=== PATIENT | male | born 1950 | race Caucasian/White ===

== ENCOUNTER 2018-06-12 10:04 | Inpatient (IN) | payer MEDICARE, MEDICAID ==
[2018-06-12] MEDS ORDERED: Lactated Ringer 1,000 ML IV ONE ×2 (10:27→19:23)
[2018-06-12] MEDS ORDERED: Multivitamin Inj 10 ML, Thiamine HCL 100 MG, Magnesium Sulfate 2 GM, Folic Acid 1 MG in... IV SCH ×2 (10:30→22:00)
[2018-06-12 10:43] LABS: % BASOPHILS 0.6 % (0.0-2.0); % EOSINOPHILS 1.6 % (0.0-5.0); % LYMPHOCYTES 9.6 % (20.0-50.0); % MONOCYTES 5.6 % (2.0-10.0); % NEUTROPHILS 82.6 % (40.0-80.0); BASOPHILE ABSOLUTE 0.1 Th/cumm (0-0.2); EOSINOPHILE ABSOLUTE 0.2 Th/cmm (0.1-0.4); HEMATOCRIT 43.7 % (41.0-60); HEMOGLOBIN 14.6 gm/dL (12-16); LYMPHOCYTE ABSOLUTE 1.1 Th/cmm (1.5-3.0); MEAN CELL VOLUME 85.6 fl (80-99); MEAN CORPUSCULAR HEMOGLOBIN 28.6 pg (27.0-31.0); MEAN CORPUSCULAR HGB CONC 33.4 pg (28.0-36.0); MEAN PLATELET VOLUME 8.2 fl; MONOCYTE ABSOLUTE 0.6 Th/cmm (0.3-1.0); PLATELET COUNT 139 Th/cmm (150-400); RED BLOOD COUNT 5.11 Mil/cmm (3.80-5.80); RED CELL DISTRIBUTION WIDTH 14.9 % (11.5-20.0)
[2018-06-12 11:00] LABS: ALB/GLOB RATIO 1.7 (1.0-1.8); ALBUMIN 4.4 gm/dL (4.2-5.5); ALKALINE PHOSPHATASE 55 U/L (34-104); AMYLASE SERUM 147 U/L (29-103); ANION GAP 20.3 (7.0-16.0); BILIRUBIN,TOTAL 0.8 mg/dL (0.3-1.0); BUN - UREA NITROGEN 28 mg/dL (7-25); CALCIUM SERUM 8.1 mg/dL (8.6-10.3); CARBON DIOXIDE 23.3 mEq/L (21.0-31.0); CHLORIDE 104 mEq/L (98-107); CREATININE - SERUM 1.1 mg/dL (0.7-1.3); GFR AFRICAN-AMERICAN > 60.0 ml/min (>90); GFR NON AFRICAN-AMERICAN > 60.0 ml/min; GLUCOSE 106 mg/dL (70-105); LIPASE 265 U/L (11-82); PHOSPHOROUS 4.2 mg/dL (2.5-5.0); POTASSIUM SERUM 3.6 mEq/L (3.5-5.1); SGOT 30 U/L (13-39); SGPT/ALT 28 U/L (7-52); SODIUM SERUM 144 mEq/L (136-145)
[2018-06-12] MEDS ORDERED: Multivitamin Inj 10 mL Vial IV ONE ×2 (11:15→22:07)
[2018-06-12] MEDS ORDERED: Magnesium Sulfate 1 gm/2 mL 2mL Vial IV ONE ×2 (11:15→22:17)
[2018-06-12] MEDS ORDERED: Thiamine 100 mg/mL 2mL Vial ONE ×2 (11:15→22:07)
[2018-06-12 11:34] LABS: URINE SOURCE CATH
[2018-06-12 11:38] LABS: URINE BILIRUBIN NEGATIVE (NEGATIVE); URINE BLOOD NEGATIVE (NEGATIVE); URINE GLUCOSE (UA) NEGATIVE (NEGATIVE); URINE KETONE TRACE mg/dL (NEGATIVE); URINE LEUKOCYTE ESTERASE NEGATIVE (NEGATIVE); URINE NITRATE NEGATIVE (NEGATIVE); URINE PROTEIN NEGATIVE (NEGATIVE); URINE UROBILINOGEN 0.2 E.U./dL (0.2 - 1.0)
[2018-06-12 11:51] LABS: URINE CLARITY CLEAR (CLEAR); URINE COLOR YELLOW
[2018-06-12 11:52] LABS: URINE MICROSCOPIC INDICATED? NO
[2018-06-12 12:09] LABS: AMPHETAMINE URINE NEGATIVE (NEGATIVE); BARBITURATES URINE NEGATIVE (NEGATIVE); BENZODIAZEPINES QUAL URINE POSITIVE (NEGATIVE); CANNABINOID THC NEGATIVE (NEGATIVE); COCAINE METABOLITE QUAL URINE NEGATIVE (NEGATIVE); METHADONE URINE NEGATIVE (NEGATIVE); METHAMPHETAMINES QUAL URINE NEGATIVE (NEGATIVE); OPIATES (MORPHINE) QUAL. URINE POSITIVE (NEGATIVE); PHENCYCLIDINE (PCP) URINE NEGATIVE (NEGATIVE); TRICYCLICS (TCA) QUAL. URINE POSITIVE (NEGATIVE)
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
[2018-06-13 04:49] LABS: % BASOPHILS 0.4 % (0.0-2.0); % EOSINOPHILS 1.1 % (0.0-5.0); % LYMPHOCYTES 12.5 % (20.0-50.0); % MONOCYTES 4.8 % (2.0-10.0); % NEUTROPHILS 81.2 % (40.0-80.0); EOSINOPHILE ABSOLUTE 0.1 Th/cmm (0.1-0.4); HEMATOCRIT 43.2 % (41.0-60); HEMOGLOBIN 14.3 gm/dL (12-16); MEAN CELL VOLUME 86.2 fl (80-99); MEAN CORPUSCULAR HEMOGLOBIN 28.5 pg (27.0-31.0); MEAN CORPUSCULAR HGB CONC 33.1 pg (28.0-36.0); MONOCYTE ABSOLUTE 0.4 Th/cmm (0.3-1.0); NEUTROPHILE ABSOLUTE 6.6 Th/cmm (1.8-8.0); PLATELET COUNT 118 Th/cmm (150-400); RED BLOOD COUNT 5.01 Mil/cmm (3.80-5.80); RED CELL DISTRIBUTION WIDTH 14.5 % (11.5-20.0); WHITE BLOOD COUNT 8.1 Th/cmm (4.8-10.8)
[2018-06-13 05:16] LABS: ANION GAP 19.4 (7.0-16.0); BUN - UREA NITROGEN 16 mg/dL (7-25); CALCIUM SERUM 7.9 mg/dL (8.6-10.3); CARBON DIOXIDE 20.1 mEq/L (21.0-31.0); CHLORIDE 106 mEq/L (98-107); CREATININE - SERUM 0.8 mg/dL (0.7-1.3); GFR AFRICAN-AMERICAN > 60.0 ml/min (>90); GFR NON AFRICAN-AMERICAN > 60.0 ml/min; GLUCOSE 110 mg/dL (70-105); POTASSIUM SERUM 3.5 mEq/L (3.5-5.1); SODIUM SERUM 142 mEq/L (136-145)
--- NOTE | 2018-06-13 08:33 | Diagnostic Imaging Report ---
Portable chest x-ray HISTORY: Shortness of breath The heart size is normal. There is a tortuous thoracic aorta. No acute focal pulmonary processes. Surgical suture material noted over the mid chest. Deformity involves the left first rib along with surgical changes. Hypertrophic degenerative bony changes noted about the acromioclavicular joints bilaterally. IMPRESSION: 1. No acute pulmonary abnormalities 2. Surgical changes
--- NOTE | 2018-06-13 08:33 | Diagnostic Imaging Report ---
CT abdomen and pelvis without intravenous contrast Indication: Abdominal pain, elevated amylase Comparison: None, Technique: Axial images were obtained from the lung bases to the bilateral proximal femurs without IV contrast. Coronal reconstructions were made. total DLP: 593, CTDI12 FINDINGS: Hypoventilatory atelectatic changes of the lung bases are noted. There is elevation of the left hemidiaphragm. Markedly tortuous distal thoracic aorta is noted. Evaluation of the solid organs is limited due to lack of IV contrast. There is fatty infiltration of the liver. No focal lesions. No radiopaque gallstones. No focal splenic lesions. There are mild inflammatory changes along the head and uncinate process of the pancreas and surrounding duodenum which trace fluid in this region. No focal pancreatic or adrenal lesions. No evidence of hydronephrosis or nephrolithiasis. There is distention of the urinary bladder. Diverticulosis is noted without evidence of diverticulitis. Partially visualized air-filled appendix is noted. No evidence of free air. There are postsurgical changes of the anterior abdominal wall at the midline. Degenerative changes of the spine and pelvis are noted. Cystic changes of the bilateral femoral head/neck junctions are seen sclerotic density seen along the left femoral head anteriorly measuring 1.6 x 1.1 cm. IMPRESSION: Inflammatory changes seen along the head and uncinate process of the pancreas and duodenum. Differential diagnosis includes pancreatitis and possible duodenitis. Trace free fluid is noted. No free air. Note exam was limited due to lack of IV contrast. Please correlate with clinical findings. Distended urinary bladder. Diverticulosis without evidence of diverticulitis Fatty infiltration of the liver. 1.6 x 1.1 cm area with peripheral sclerosis along the left femoral head region nonspecific may be due to degenerative etiology or previous bone infarct. Please correlate with clinical findings and old exam.
[2018-06-13] MEDS: Lactated Ringer 1,000 ML IV SCH ×3 (08:54→17:15)
--- NOTE | 2018-06-13 09:24 | History and Physical ---
History of Present Illness - HPI Chief Complaint: Patient was put in 5150 due that he tried to hurt himself. HPI: Police put patient in 5150 due that sited indicated that he tried to hurt himself. During ER evaluation patient was intoxicated positive for opiods. Vital Signs: Last Vital Signs Temp 98.1 F 06/13/18 04:00 Pulse 100 06/13/18 06:54 Resp 21 06/13/18 05:45 BP 166/95 06/13/18 06:54 Pulse Ox 97 06/13/18 05:45 Past Medical History Cardiovascular: Report: HTN Pulmonary: Report: No Pertinent Hx TRACK REPAIR PERSON: Report: Other (Patient takes Seroquel and he do not why.) GI: Report: No Pertinent Hx Psych: Report: Addictions Musculoskeletal: Report: No Pertinent Hx Rheumatologic: Report: No pertinent Hx Infectious Disease: Report: No Pertinent Hx Renal/: Report: No Pertinent Hx Endocrine: Report: No Pertinent Hx Dermatology: Report: No Pertinent Hx - Past Surgical History Past Surgical History: No pertinent Hx Family Medical History - Family Member Mother History Unknown: Yes Social History Smoke: No Alcohol: Heavy Drugs: Other (Vancleve) Lives: With Family Domestic Violence: Negative - Medications Home Medications: Home Medication Medication Instructions Recorded Type Hydrocodone/Acetaminophen [Vancleve 2 each PO DAILY 06/12/18 History 5-325 Tablet] QUEtiapine Fumarate [SEROquel] 400 mg PO HS 06/12/18 History - Allergies Allergies/Adverse Reactions: Allergies Allergy/AdvReac Type Severity Reaction Status Date / Time No Known Allergies Allergy Verified 06/12/18 10:37 Review of Systems - Review of Systems Constitutional: Report: No Significant Eyes: Report: No Significant ENT: Report: No Significant Respiratory: Report: No Significant Cardiovascular: Report: No Significant Gastrointestinal: Report: No Significant Genitourinary: Report: No Significant Musculoskeletal: Report: Back Pain Skin: Report: No Significant Neurological: Report: Weakness Physical Exam - Physical Exam HEENT: Report: Ears Nose Throat within normal limits Neck: Report: Within normal limits Cardiovascular Systems: Report: Regular, Rate and Rhythm Respiratory: Report: Breath Sounds are within normal limits Abdomen: Report: Non-tender to palpation Back: Report: Inspection of back is within normal limits. Extremities: Report: Non-tender to palpation. Skin: Report: Color of skin is within normal limits Neuro/Psych: Report: Mood affect is within normal limits - Lab Results All Lab Results last 24 hours: Laboratory Results - last 24 hr 06/12/18 06/12/18 06/12/18 10:30 10:30 10:30 WBC 11.0 H RBC 5.11 Hgb 14.6 Hct 43.7 MCV 85.6 MCH 28.6 MCHC Differential 33.4 RDW 14.9 Plt Count 139 L MPV 8.2 Neutrophils % 82.6 H Lymphocytes % 9.6 L Monocytes % 5.6 Eosinophils % 1.6 Basophils % 0.6 Sodium 144 Potassium 3.6 Chloride 104 Carbon Dioxide 23.3 Anion Gap 20.3 H BUN 28 H Creatinine 1.1 Est GFR ( Amer) > 60.0 Est GFR (Non-Af Amer) > 60.0 BUN/Creatinine Ratio 25.5 Glucose 106 H Whole Bld Lactic Acid 4.85 H* Calcium 8.1 L Phosphorus 4.2 Magnesium 2.0 Total Bilirubin 0.8 AST 30 ALT 28 Alkaline Phosphatase 55 Troponin I Total Protein 7.0 Albumin 4.4 Globulin 2.6 Albumin/Globulin Ratio 1.7 Amylase 147 H Lipase 265 H Urine Source Urine Color Urine Clarity Urine pH Ur Specific [place] Urine Protein Urine Glucose (UA) Urine Ketones Urine Blood Urine Nitrate Urine Bilirubin Urine Urobilinogen Ur Leukocyte Esterase Urine Opiates Screen Urine Methadone Screen Ur Barbiturates Screen Ur Tricyclics Screen Ur Phencyclidine Scrn Amphetamines Screen U Methamphetamines Scrn U Benzodiazepines Scrn U Cocaine Metab Screen U Cannabinoids Screen Ethyl Alcohol 381 H 06/12/18 06/12/18 06/12/18 11:25 11:25 11:53 WBC RBC Hgb Hct MCV MCH MCHC Differential RDW Plt Count MPV Neutrophils % Lymphocytes % Monocytes % Eosinophils % Basophils % Sodium Potassium Chloride Carbon Dioxide Anion Gap BUN Creatinine Est GFR ( Amer) Est GFR (Non-Af Amer) BUN/Creatinine Ratio Glucose Whole Bld Lactic Acid Calcium Phosphorus Magnesium Total Bilirubin AST ALT Alkaline Phosphatase Troponin I < 0.01 L Total Protein Albumin Globulin Albumin/Globulin Ratio Amylase Lipase Urine Source CATH Urine Color YELLOW Urine Clarity CLEAR Urine pH 6.0 Ur Specific [place] 1.020 Urine Protein NEGATIVE Urine Glucose (UA) NEGATIVE Urine Ketones TRACE Urine Blood NEGATIVE Urine Nitrate NEGATIVE Urine Bilirubin NEGATIVE Urine Urobilinogen 0.2 Ur Leukocyte Esterase NEGATIVE Urine Opiates Screen POSITIVE H Urine Methadone Screen NEGATIVE Ur Barbiturates Screen NEGATIVE Ur Tricyclics Screen POSITIVE H Ur Phencyclidine Scrn NEGATIVE Amphetamines Screen NEGATIVE U Methamphetamines Scrn NEGATIVE U Benzodiazepines Scrn POSITIVE H U Cocaine Metab Screen NEGATIVE U Cannabinoids Screen NEGATIVE Ethyl Alcohol 06/12/18 06/13/18 06/13/18 12:20 04:05 04:05 WBC 8.1 RBC 5.01 Hgb 14.3 Hct 43.2 MCV 86.2 MCH 28.5 MCHC Differential 33.1 RDW 14.5 Plt Count 118 L MPV 9.0 Neutrophils % 81.2 H Lymphocytes % 12.5 L Monocytes % 4.8 Eosinophils % 1.1 Basophils % 0.4 Sodium 142 Potassium 3.5 Chloride 106 Carbon Dioxide 20.1 L Anion Gap 19.4 H BUN 16 Creatinine 0.8 Est GFR ( Amer) > 60.0 Est GFR (Non-Af Amer) > 60.0 BUN/Creatinine Ratio 20.0 Glucose 110 H Whole Bld Lactic Acid 5.66 H* Calcium 7.9 L Phosphorus Magnesium Total Bilirubin AST ALT Alkaline Phosphatase Troponin I Total Protein Albumin Globulin Albumin/Globulin Ratio Amylase Lipase Urine Source Urine Color Urine Clarity Urine pH Ur Specific [place] Urine Protein Urine Glucose (UA) Urine Ketones Urine Blood Urine Nitrate Urine Bilirubin Urine Urobilinogen Ur Leukocyte Esterase Urine Opiates Screen Urine Methadone Screen Ur Barbiturates Screen Ur Tricyclics Screen Ur Phencyclidine Scrn Amphetamines Screen U Methamphetamines Scrn U Benzodiazepines Scrn U Cocaine Metab Screen U Cannabinoids Screen Ethyl Alcohol - Assessment Assessment: Pastient is awake, alert, calm, in no acute distress. Dx: Alcohol intoxication, 5150, Drug addiction, Mild pancreatitis, HTN. - Plan Plan: Patient is in IV NS, Ativan, pain control, amlodipine, lisinopril and clonidine. Already saw by GI, Will request a Psychiatric consultation.
[2018-06-13] MEDS: Hydrocodone/APAP 5mg/325mg Tab PO PRN (17:18)
[2018-06-13] MEDS: Pantoprazole 40 mg EC Tab PO SCH (19:41)
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
[2018-06-14] MEDS: Hydrocodone/APAP 5mg/325mg Tab PO PRN (01:31)
[2018-06-14] MEDS: Lactated Ringer 1,000 ML IV SCH (01:36)
[2018-06-14 04:27] LABS: % BASOPHILS 0.5 % (0.0-2.0); % LYMPHOCYTES 15.1 % (20.0-50.0); % MONOCYTES 6.3 % (2.0-10.0); % NEUTROPHILS 76.1 % (40.0-80.0); EOSINOPHILE ABSOLUTE 0.2 Th/cmm (0.1-0.4); HEMATOCRIT 41.8 % (41.0-60); HEMOGLOBIN 13.8 gm/dL (12-16); LYMPHOCYTE ABSOLUTE 1.2 Th/cmm (1.5-3.0); MEAN CORPUSCULAR HEMOGLOBIN 28.7 pg (27.0-31.0); MEAN PLATELET VOLUME 8.9 fl; MONOCYTE ABSOLUTE 0.5 Th/cmm (0.3-1.0); PLATELET COUNT 103 Th/cmm (150-400); RED CELL DISTRIBUTION WIDTH 13.9 % (11.5-20.0); WHITE BLOOD COUNT 7.9 Th/cmm (4.8-10.8)
[2018-06-14 05:09] LABS: ALB/GLOB RATIO 1.5 (1.0-1.8); ALBUMIN 4.2 gm/dL (4.2-5.5); ALKALINE PHOSPHATASE 74 U/L (34-104); ANION GAP 14.2 (7.0-16.0); BILIRUBIN,TOTAL 1.6 mg/dL (0.3-1.0); BUN - UREA NITROGEN 10 mg/dL (7-25); CALCIUM SERUM 8.1 mg/dL (8.6-10.3); CARBON DIOXIDE 24.2 mEq/L (21.0-31.0); CHLORIDE 103 mEq/L (98-107); CREATININE - SERUM 0.6 mg/dL (0.7-1.3); GFR AFRICAN-AMERICAN > 60.0 ml/min (>90); GFR NON AFRICAN-AMERICAN > 60.0 ml/min; GLUCOSE 136 mg/dL (70-105); POTASSIUM SERUM 3.4 mEq/L (3.5-5.1); SGOT 29 U/L (13-39); SGPT/ALT 22 U/L (7-52); SODIUM SERUM 138 mEq/L (136-145); TOTAL PROTEIN,SERUM 7.1 gm/dL (6.0-8.3)
--- NOTE | 2018-06-14 08:38 | GI Progress Note ---
Subjective - Review of Systems Service Date: 06/14/18 Subjective: Urinating lisa tim Objective - Results Result Diagrams: 06/14/18 04:10 06/14/18 04:10 Recent Labs: Laboratory Last Values WBC 7.9 Th/cmm (4.8-10.8) 06/14/18 04:10 RBC 4.80 Mil/cmm (3.80-5.80) 06/14/18 04:10 Hgb 13.8 gm/dL (12-16) 06/14/18 04:10 Hct 41.8 % (41.0-60) 06/14/18 04:10 MCV 87.0 fl (80-99) 06/14/18 04:10 MCH 28.7 pg (27.0-31.0) 06/14/18 04:10 MCHC Differential 33.0 pg (28.0-36.0) 06/14/18 04:10 RDW 13.9 % (11.5-20.0) 06/14/18 04:10 Plt Count 103 Th/cmm (150-400) L 06/14/18 04:10 MPV 8.9 fl 06/14/18 04:10 Neutrophils % 76.1 % (40.0-80.0) 06/14/18 04:10 Lymphocytes % 15.1 % (20.0-50.0) L 06/14/18 04:10 Monocytes % 6.3 % (2.0-10.0) 06/14/18 04:10 Eosinophils % 2.0 % (0.0-5.0) 06/14/18 04:10 Basophils % 0.5 % (0.0-2.0) 06/14/18 04:10 Sodium 138 mEq/L (136-145) 06/14/18 04:10 Potassium 3.4 mEq/L (3.5-5.1) L 06/14/18 04:10 Chloride 103 mEq/L (98-107) 06/14/18 04:10 Carbon Dioxide 24.2 mEq/L (21.0-31.0) 06/14/18 04:10 Anion Gap 14.2 (7.0-16.0) 06/14/18 04:10 BUN 10 mg/dL (7-25) 06/14/18 04:10 Creatinine 0.6 mg/dL (0.7-1.3) L 06/14/18 04:10 Est GFR ( Amer) > 60.0 ml/min (>90) 06/14/18 04:10 Est GFR (Non-Af Amer) > 60.0 ml/min 06/14/18 04:10 BUN/Creatinine Ratio 16.7 06/14/18 04:10 Glucose 136 mg/dL (70-105) H 06/14/18 04:10 Whole Bld Lactic Acid 1.64 mmol/L (0.60-1.99) 06/13/18 09:35 Calcium 8.1 mg/dL (8.6-10.3) L 06/14/18 04:10 Phosphorus 4.2 mg/dL (2.5-5.0) 06/12/18 10:30 Magnesium 2.0 mg/dL (1.9-2.7) 06/12/18 10:30 Total Bilirubin 1.6 mg/dL (0.3-1.0) H 06/14/18 04:10 AST 29 U/L (13-39) 06/14/18 04:10 ALT 22 U/L (7-52) 06/14/18 04:10 Alkaline Phosphatase 74 U/L (34-104) 06/14/18 04:10 Troponin I < 0.01 ng/mL (0.01-0.05) L 06/12/18 11:53 Total Protein 7.1 gm/dL (6.0-8.3) 06/14/18 04:10 Albumin 4.2 gm/dL (4.2-5.5) 06/14/18 04:10 Globulin 2.9 gm/dL 06/14/18 04:10 Albumin/Globulin Ratio 1.5 (1.0-1.8) 06/14/18 04:10 Amylase 147 U/L (29-103) H 06/12/18 10:30 Lipase 265 U/L (11-82) H 06/12/18 10:30 TSH 2.01 uIU/ml (0.34-5.60) 06/14/18 04:10 Urine Source CATH 06/12/18 11:25 Urine Color YELLOW 06/12/18 11:25 Urine Clarity CLEAR (CLEAR) 06/12/18 11:25 Urine pH 6.0 (4.6 - 8.0) 06/12/18 11:25 Ur Specific [place] 1.020 (1.005-1.030) 06/12/18 11:25 Urine Protein NEGATIVE mg/dL (NEGATIVE) 06/12/18 11:25 Urine Glucose (UA) NEGATIVE mg/dL (NEGATIVE) 06/12/18 11:25 Urine Ketones TRACE mg/dL (NEGATIVE) 06/12/18 11:25 Urine Blood NEGATIVE (NEGATIVE) 06/12/18 11:25 Urine Nitrate NEGATIVE (NEGATIVE) 06/12/18 11:25 Urine Bilirubin NEGATIVE (NEGATIVE) 06/12/18 11:25 Urine Urobilinogen 0.2 E.U./dL (0.2 - 1.0) 06/12/18 11:25 Ur Leukocyte Esterase NEGATIVE (NEGATIVE) 06/12/18 11:25 Urine Opiates Screen POSITIVE (NEGATIVE) H 06/12/18 11:25 Urine Methadone Screen NEGATIVE (NEGATIVE) 06/12/18 11:25 Ur Barbiturates Screen NEGATIVE (NEGATIVE) 06/12/18 11:25 Ur Tricyclics Screen POSITIVE (NEGATIVE) H 06/12/18 11:25 Ur Phencyclidine Scrn NEGATIVE (NEGATIVE) 06/12/18 11:25 Amphetamines Screen NEGATIVE (NEGATIVE) 06/12/18 11:25 U Methamphetamines Scrn NEGATIVE (NEGATIVE) 06/12/18 11:25 U Benzodiazepines Scrn POSITIVE (NEGATIVE) H 06/12/18 11:25 U Cocaine Metab Screen NEGATIVE (NEGATIVE) 06/12/18 11:25 U Cannabinoids Screen NEGATIVE (NEGATIVE) 06/12/18 11:25 Ethyl Alcohol 381 mg/dL (0-10) H 06/12/18 10:30 - Physical Exam Vitals and I&O: Vital Signs Temp 98.0 F 06/14/18 05:00 Pulse 108 06/14/18 08:06 Resp 12 06/14/18 08:06 BP 145/97 06/14/18 05:00 Pulse Ox 97 06/14/18 08:06 Intake & Output 06/13/18 06/14/18 06/14/18 18:59 06:59 18:59 Intake Total 1600 1503.333 Output Total 1500 1550 Balance 100 -46.667 Weight (lbs) 79.832 kg 79.379 kg Intake: Intake, IV Amount 1000 1303.333 Lactated Ringer 1,000 ml 1303.333 @ 100 mls/hr IV .Q10H [facility] Rx#:[id number] Lactated Ringer 1,000 ml 1000 @ 150 mls/hr IV .Q6H40M [facility] Rx#:[id number] Oral 600 200 Output: Urine 1500 1550 Other: # Voids 10 # Bowel Movements 0 0 Weight Source Bedscale Bedscale Active Medications: Current Medications Acetaminophen/Hydrocodone Bitart ([place] 5mg/325mg) 1 tab PO Q6H PRN PRN Reason: Pain (Moderate) Stop: 08/12/18 17:03 Last Admin: 06/14/18 01:31 Dose: 1 tab Amlodipine Besylate (Norvasc) 10 mg PO DAILY [facility] Stop: 08/12/18 09:14 Last Admin: 06/13/18 09:48 Dose: 10 mg Lactated Ringer's (Lactated Ringer) 1,000 mls @ 100 mls/hr IV .Q10H [facility] Stop: 08/12/18 17:14 Last Infusion: 06/14/18 06:17 Dose: 100 mls/hr Ibuprofen (Motrin) 800 mg PO Q8H PRN PRN Reason: Headache Stop: 08/12/18 20:42 Last Admin: 06/13/18 21:01 Dose: 800 mg Lorazepam (Ativan) 1 mg IVP Q6HR PRN; Protocol PRN Reason: Alcohol Withdrawal Stop: 08/12/18 04:32 Last Admin: 06/14/18 02:55 Dose: 1 mg Ondansetron HCl (Zofran) 4 mg IV Q6H PRN PRN Reason: Nausea / Vomiting Stop: 08/12/18 04:33 Last Admin: 06/13/18 18:46 Dose: 4 mg Pantoprazole Sodium (Protonix) 40 mg PO DAILY [facility] Stop: 08/12/18 19:14 Last Admin: 06/13/18 19:41 Dose: 40 mg General: Alert, Oriented x3 HEENT: Atraumatic Cardiovascular: Regular rate Abdomen: Bowel sounds, Soft, no Tender, no Hepatomegaly, no Splenomegaly, no Distended, no Rebound, no Mass, no Guarding Extremities: no Clubbing Assessment/Plan - Assessment Assessment: # EtOH # Pancreatitis # Suicidal ideation Pt is doing well, no sign of complicated pancreatitis. Etiology is EtOH intake. Plan: - advance diet - reduce IVF - watch for EtOH withdrawal - EtOH cessation GI lorenzo stable as long as taking in po
[2018-06-14] MEDS ORDERED: Lactated Ringer 1,000 ML IV SCH (08:45)
--- NOTE | 2018-06-14 09:23 | General Progress Note ---
Subjective - Review of Systems Service Date: 06/14/18 Subjective: I am fine Objective - Results Result Diagrams: 06/14/18 04:10 06/14/18 04:10 Recent Labs: Laboratory Last Values WBC 7.9 Th/cmm (4.8-10.8) 06/14/18 04:10 RBC 4.80 Mil/cmm (3.80-5.80) 06/14/18 04:10 Hgb 13.8 gm/dL (12-16) 06/14/18 04:10 Hct 41.8 % (41.0-60) 06/14/18 04:10 MCV 87.0 fl (80-99) 06/14/18 04:10 MCH 28.7 pg (27.0-31.0) 06/14/18 04:10 MCHC Differential 33.0 pg (28.0-36.0) 06/14/18 04:10 RDW 13.9 % (11.5-20.0) 06/14/18 04:10 Plt Count 103 Th/cmm (150-400) L 06/14/18 04:10 MPV 8.9 fl 06/14/18 04:10 Neutrophils % 76.1 % (40.0-80.0) 06/14/18 04:10 Lymphocytes % 15.1 % (20.0-50.0) L 06/14/18 04:10 Monocytes % 6.3 % (2.0-10.0) 06/14/18 04:10 Eosinophils % 2.0 % (0.0-5.0) 06/14/18 04:10 Basophils % 0.5 % (0.0-2.0) 06/14/18 04:10 Sodium 138 mEq/L (136-145) 06/14/18 04:10 Potassium 3.4 mEq/L (3.5-5.1) L 06/14/18 04:10 Chloride 103 mEq/L (98-107) 06/14/18 04:10 Carbon Dioxide 24.2 mEq/L (21.0-31.0) 06/14/18 04:10 Anion Gap 14.2 (7.0-16.0) 06/14/18 04:10 BUN 10 mg/dL (7-25) 06/14/18 04:10 Creatinine 0.6 mg/dL (0.7-1.3) L 06/14/18 04:10 Est GFR ( Amer) > 60.0 ml/min (>90) 06/14/18 04:10 Est GFR (Non-Af Amer) > 60.0 ml/min 06/14/18 04:10 BUN/Creatinine Ratio 16.7 06/14/18 04:10 Glucose 136 mg/dL (70-105) H 06/14/18 04:10 Whole Bld Lactic Acid 1.64 mmol/L (0.60-1.99) 06/13/18 09:35 Calcium 8.1 mg/dL (8.6-10.3) L 06/14/18 04:10 Phosphorus 4.2 mg/dL (2.5-5.0) 06/12/18 10:30 Magnesium 2.0 mg/dL (1.9-2.7) 06/12/18 10:30 Total Bilirubin 1.6 mg/dL (0.3-1.0) H 06/14/18 04:10 AST 29 U/L (13-39) 06/14/18 04:10 ALT 22 U/L (7-52) 06/14/18 04:10 Alkaline Phosphatase 74 U/L (34-104) 06/14/18 04:10 Troponin I < 0.01 ng/mL (0.01-0.05) L 06/12/18 11:53 Total Protein 7.1 gm/dL (6.0-8.3) 06/14/18 04:10 Albumin 4.2 gm/dL (4.2-5.5) 06/14/18 04:10 Globulin 2.9 gm/dL 06/14/18 04:10 Albumin/Globulin Ratio 1.5 (1.0-1.8) 06/14/18 04:10 Amylase 147 U/L (29-103) H 06/12/18 10:30 Lipase 265 U/L (11-82) H 06/12/18 10:30 TSH 2.01 uIU/ml (0.34-5.60) 06/14/18 04:10 Urine Source CATH 06/12/18 11:25 Urine Color YELLOW 06/12/18 11:25 Urine Clarity CLEAR (CLEAR) 06/12/18 11:25 Urine pH 6.0 (4.6 - 8.0) 06/12/18 11:25 Ur Specific [place] 1.020 (1.005-1.030) 06/12/18 11:25 Urine Protein NEGATIVE mg/dL (NEGATIVE) 06/12/18 11:25 Urine Glucose (UA) NEGATIVE mg/dL (NEGATIVE) 06/12/18 11:25 Urine Ketones TRACE mg/dL (NEGATIVE) 06/12/18 11:25 Urine Blood NEGATIVE (NEGATIVE) 06/12/18 11:25 Urine Nitrate NEGATIVE (NEGATIVE) 06/12/18 11:25 Urine Bilirubin NEGATIVE (NEGATIVE) 06/12/18 11:25 Urine Urobilinogen 0.2 E.U./dL (0.2 - 1.0) 06/12/18 11:25 Ur Leukocyte Esterase NEGATIVE (NEGATIVE) 06/12/18 11:25 Urine Opiates Screen POSITIVE (NEGATIVE) H 06/12/18 11:25 Urine Methadone Screen NEGATIVE (NEGATIVE) 06/12/18 11:25 Ur Barbiturates Screen NEGATIVE (NEGATIVE) 06/12/18 11:25 Ur Tricyclics Screen POSITIVE (NEGATIVE) H 06/12/18 11:25 Ur Phencyclidine Scrn NEGATIVE (NEGATIVE) 06/12/18 11:25 Amphetamines Screen NEGATIVE (NEGATIVE) 06/12/18 11:25 U Methamphetamines Scrn NEGATIVE (NEGATIVE) 06/12/18 11:25 U Benzodiazepines Scrn POSITIVE (NEGATIVE) H 06/12/18 11:25 U Cocaine Metab Screen NEGATIVE (NEGATIVE) 06/12/18 11:25 U Cannabinoids Screen NEGATIVE (NEGATIVE) 06/12/18 11:25 Ethyl Alcohol 381 mg/dL (0-10) H 06/12/18 10:30 - Physical Exam Vitals and I&O: Vital Signs Temp 98.0 F 06/14/18 05:00 Pulse 108 06/14/18 08:06 Resp 12 06/14/18 08:06 BP 145/97 06/14/18 05:00 Pulse Ox 97 06/14/18 08:06 Intake & Output 06/13/18 06/14/18 06/14/18 18:59 06:59 18:59 Intake Total 1600 1503.333 Output Total 1500 1550 Balance 100 -46.667 Weight (lbs) 79.832 kg 79.379 kg Intake: Intake, IV Amount 1000 1303.333 Lactated Ringer 1,000 ml 1303.333 @ 100 mls/hr IV .Q10H [facility] Rx#:[id number] Lactated Ringer 1,000 ml 1000 @ 150 mls/hr IV .Q6H40M [facility] Rx#:[id number] Oral 600 200 Output: Urine 1500 1550 Other: # Voids 10 # Bowel Movements 0 0 Weight Source Bedscale Bedscale Active Medications: Current Medications Acetaminophen/Hydrocodone Bitart ([place] 5mg/325mg) 1 tab PO Q6H PRN PRN Reason: Pain (Moderate) Stop: 08/12/18 17:03 Last Admin: 06/14/18 01:31 Dose: 1 tab Amlodipine Besylate (Norvasc) 10 mg PO DAILY [facility] Stop: 08/12/18 09:14 Last Admin: 06/13/18 09:48 Dose: 10 mg Lactated Ringer's (Lactated Ringer) 1,000 mls @ 75 mls/hr IV .[id number] [facility] Stop: 08/13/18 08:44 Ibuprofen (Motrin) 800 mg PO Q8H PRN PRN Reason: Headache Stop: 08/12/18 20:42 Last Admin: 06/13/18 21:01 Dose: 800 mg Lisinopril (Zestril) 20 mg PO DAILY [facility] Stop: 08/13/18 09:29 Lorazepam (Ativan) 1 mg IVP Q6HR PRN; Protocol PRN Reason: Alcohol Withdrawal Stop: 08/12/18 04:32 Last Admin: 06/14/18 02:55 Dose: 1 mg Ondansetron HCl (Zofran) 4 mg IV Q6H PRN PRN Reason: Nausea / Vomiting Stop: 08/12/18 04:33 Last Admin: 06/13/18 18:46 Dose: 4 mg Pantoprazole Sodium (Protonix) 40 mg PO DAILY [facility] Stop: 08/12/18 19:14 Last Admin: 06/13/18 19:41 Dose: 40 mg General: Alert, Oriented x3 HEENT: Atraumatic Neck: Supple Cardiovascular: Regular rate Abdomen: Bowel sounds, Soft, no Tender, no Hepatomegaly, no Splenomegaly, no Distended, no Rebound, no Mass, no Guarding Extremities: Other (No edema), no Clubbing Neurological: Normal gait Psych/Mental Status: Mental status NL Assessment/Plan - Assessment Assessment: Pastient is awake, alert, calm, in no acute distress. Dx: Alcohol intoxication, 5150, Drug addiction, Mild pancreatitis, HTN. - Plan Plan: Patient is in IV NS, Ativan, pain control, amlodipine, lisinopril and clonidine. Already saw by GI, Awaiting Psychiatric evaluation.
[2018-06-14] MEDS: Pantoprazole 40 mg EC Tab PO SCH (09:47)
[2018-06-14] MEDS ORDERED: THIAMINE HCL IV SCH (10:00)
[2018-06-14] MEDS ORDERED: [UNRECOGNIZED DRUG - OTHER] IV SCH (10:00)
[2018-06-14] MEDS ORDERED: MULTIVITAMIN IV SCH (10:00)
[2018-06-14] MEDS ORDERED: FOLIC ACID IV SCH (10:00)
[2018-06-14] MEDS ORDERED: Potassium Chloride 20 mEq ER Tab PO ONE (10:40)
--- NOTE | 2018-06-14 10:57 | Consultation ---
DATE OF CONSULTATION: 06/14/2018 REQUESTING PHYSICIAN: Usama Waters M.D. REASON FOR CONSULTATION: Suicidal ideation. HISTORY OF PRESENT ILLNESS: This patient is a 68-year-old, living with his family. Information obtained by directly interviewing the patient as well as reviewing the admission papers. The patient is reporting that he had a couple of drinks and felt suicidal but said that he did not mean anything. When I confronted about him putting a knife to his throat, the patient is denying everything. He states that he has a lot of support and he goes to [facility] and has been taking the medications on a regular basis. The patient is not presenting with any psychosis or suicidal ideations or homicidal ideations at this time. The patient is being closely monitored since the time of the hospitalization and has been medically cleared. The patient is stating that he has an appointment with his psychiatrist on this week. PAST PSYCHIATRIC HISTORY: The patient is reported to have been hospitalized at one time at [facility]. SUBSTANCE ABUSE HISTORY: The patient has been denying that he has been abusing the medications. The patient is stating that he takes [place] because of his arthritis. SOCIAL HISTORY: The patient is stating that he has a lot of support from his family. LEGAL PROBLEMS: None at this time. MENTAL STATUS EXAMINATION: The patient is a 68-year-old, looking his stated age, cooperative. Eye contact is fair. Mood is noted to be irritable. Affect is constricted. Insight and judgment at this time are noted to be fair. Impulse control is also noted to be fair. The patient is not presenting with any threats to harm self or others. The patient denies any auditory hallucinations and no delusions are noted. The patient is stating that he was depressed and has been attending the [facility] and he would like to continue treatment over there. ASSESSMENT: AXIS I: A. Major depressive disorder, recurrent and moderate. B. Alcohol abuse. IMMEDIATE TREATMENT PLAN: The patient is going to be cleared from the [facility]. The patient is going to be encouraged to seek treatment on an outpatient basis. [facility]# [id number]
--- NOTE | 2018-06-14 12:46 | Discharge Summary ---
General Discharge Summary - Discharge Summary Date of Admission: 06/12/18 Admitting Diagnosis: Alcohol intoxication, 5150, Drug addiction, Mild pancreatitis. Discharge Date: 06/14/18 Discharge Diagnosis: Alcohol intoxication, Drug addiction, Mild pancrfeatitis, HTN. Laboratory Findings: Laboratory Results - last 24 hr 06/14/18 06/14/18 06/14/18 04:10 04:10 04:10 WBC 7.9 RBC 4.80 Hgb 13.8 Hct 41.8 MCV 87.0 MCH 28.7 MCHC Differential 33.0 RDW 13.9 Plt Count 103 L MPV 8.9 Neutrophils % 76.1 Lymphocytes % 15.1 L Monocytes % 6.3 Eosinophils % 2.0 Basophils % 0.5 Sodium 138 Potassium 3.4 L Chloride 103 Carbon Dioxide 24.2 Anion Gap 14.2 BUN 10 Creatinine 0.6 L Est GFR ( Amer) > 60.0 Est GFR (Non-Af Amer) > 60.0 BUN/Creatinine Ratio 16.7 Glucose 136 H Calcium 8.1 L Total Bilirubin 1.6 H AST 29 ALT 22 Alkaline Phosphatase 74 Total Protein 7.1 Albumin 4.2 Globulin 2.9 Albumin/Globulin Ratio 1.5 TSH 2.01 Hospital Course: Patient responded well to treatment, he had no pain, nausea or vomit. He tolerated well regular food. Treatment: Patient was hospitalized in Telemetry, he was started with IV banana bag, IV Ativan, Amlodipine, clonidine, and pain control. He was seen by GI and Psychiatry. Disposition: PT DISCHARGED HOME Home Medications: Home Medication Medication Instructions Recorded Type Hydrocodone/Acetaminophen [[place] 2 each PO DAILY 06/12/18 History 5-325 Tablet] QUEtiapine Fumarate [SEROquel] 400 mg PO HS 06/12/18 History Inpatient Medications: Current Medications Acetaminophen/Hydrocodone Bitart ([place] 5mg/325mg) 1 tab PO Q6H PRN PRN Reason: Pain (Moderate) Stop: 08/12/18 17:03 Last Admin: 06/14/18 01:31 Dose: 1 tab Amlodipine Besylate (Norvasc) 10 mg PO DAILY [facility] Stop: 08/12/18 09:14 Last Admin: 06/14/18 09:47 Dose: 10 mg Lactated Ringer's (Lactated Ringer) 1,000 mls @ 75 mls/hr IV .[id number] [facility] Stop: 08/13/18 08:44 Last Admin: 06/14/18 08:45 Dose: 75 mls/hr Ibuprofen (Motrin) 800 mg PO Q8H PRN PRN Reason: Headache Stop: 08/12/18 20:42 Last Admin: 06/13/18 21:01 Dose: 800 mg Lisinopril (Zestril) 20 mg PO DAILY [facility] Stop: 08/13/18 09:29 Last Admin: 06/14/18 10:28 Dose: 20 mg Lorazepam (Ativan) 1 mg IVP Q6HR PRN; Protocol PRN Reason: Alcohol Withdrawal Stop: 08/12/18 04:32 Last Admin: 06/14/18 02:55 Dose: 1 mg Ondansetron HCl (Zofran) 4 mg IV Q6H PRN PRN Reason: Nausea / Vomiting Stop: 08/12/18 04:33 Last Admin: 06/13/18 18:46 Dose: 4 mg Pantoprazole Sodium (Protonix) 40 mg PO DAILY [facility] Stop: 08/12/18 19:14 Last Admin: 06/14/18 09:47 Dose: 40 mg Activity: As Tolerated Discharge Diet: Regular Consults and Follow-Up: REJI ANAND [Other] Usama Waters [Primary Care Provider] - Consulting Speciality: GI, Other (PCP)
== END 2018-06-14 13:41 | disposition home or self-care (01) | DRG 439 ==
LOC: ER 10:04 → ICU 20:43
PROVIDERS: ADMIT General Practice; ATTEND General Practice
DX: K85.20 Alcohol induced acute pancreatitis without necrosis or infection (principal); F33.1 Major depressive disorder, recurrent, moderate; F11.20 Opioid dependence, uncomplicated; F10.229 Alcohol dependence with intoxication, unspecified; I10 Essential (primary) hypertension; Y90.8 Blood alcohol level of 240 mg/100 ml or more; E86.0 Dehydration; G89.29 Other chronic pain; T14.91XA Suicide attempt, initial encounter; K21.9 Gastro-esophageal reflux disease without esophagitis
CPT/HCPCS: 36415-UA; 71045-TC; 80048-TC; 80053-TC; 80307; 80320-TC; 81003-TC; 82150-TC; 83605; 83690-TC; 83735-TC; 84100-TC; 84443-TC; 84484-TC; 85025-TC; 93005; 96375; 96376; J2060; J2405; J3411; J3475; J3490; J7030; X6226; X6598; Z7610